=== PATIENT | male | born 1950 | race Caucasian/White ===

== ENCOUNTER 2020-12-28 18:01 | Emergency (ER) | payer OTHER ==
[2020-12-28 18:08] VITALS: BP 135/85
[2020-12-28] MEDS ORDERED: LIDOCAINE 1% 2 ML VIAL SUBQ STA (18:13)
--- NOTE | 2020-12-28 18:42 | ED Physician Documentation ---
History of Present Illness - Stated complaint Stated Complaint: FALL, HEAD LAC - Chief complaint Chief Complaint: Laceration - History obtained from History obtained from: Patient - Additonal information Additional information: This is a 70 yo M w/ a pmh of [facility] causing him to have some difficulty walking. He is visiting from [place] and was walking up porch stairs when he didn't clear one of the steps and stumbled forward. He hit his mouth and left eyebrow on the porch. He did not lose consciousness. He presents now w/ left eyebrow laceration and a swollen upper lip. No other injuries. He denies headache, confusion, dizziness, vision changes, or new focal weakness. He reports tetanus shot is up to date. He is not on any anticoagulants or antiplatlets. Normally goes to [facility] in [place], is returning home on Wednesday. Review of Systems Constitutional: reports: Reviewed and negative Eyes: reports: Reviewed and negative Ears: reports: Reviewed and negative Cardiac: reports: Reviewed and negative Respiratory: reports: Reviewed and negative GI: reports: Reviewed and negative Skin: reports: Laceration (s) (left eyebrow) Neurologic: reports: Reviewed and negative (pt w/ chronic weakness 2/2 to [facility].) PD PAST MEDICAL HISTORY - Past Medical History Past Medical History: Yes Musculoskeletal: Other (inclusion body myositis) - Present Medications Home Medications: Ambulatory Orders Medication Instructions Recorded Confirmed Ibuprofen [Motrin] 1 tablet PO BID PRN 12/28/20 12/28/20 allopurinoL [Zyloprim] 100 mg PO DAILY 12/28/20 12/28/20 atenoloL [Tenormin] 25 mg PO HS 12/28/20 12/28/20 metFORMIN [Glucophage] 500 mg PO BIDWM 12/28/20 12/28/20 - Allergies Allergies/Adverse Reactions: Allergies Allergy/AdvReac Type Severity Reaction Status Date / Time No Known Drug Allergies Allergy Verified 12/28/20 18:04 PD ED PE NORMAL - Vitals Vital signs reviewed: Yes - General General: Alert and oriented X 3, No acute distress, Well developed/nourished - HEENT HEENT: Other (left eyebrow laceration with localized swelling and contusion. swelling of the upper lip, no obvious lacerations. ) - Neck Neck: Supple, no meningeal sign, No bony TTP - Cardiac Cardiac: RRR, No murmur - Respiratory Respiratory: No respiratory distress, Clear bilaterally - Derm Derm: Normal color, Warm and dry, Other (3cm x 1cm laceration through the subq tissue just above and including the left eyebrow. ) - Neuro Neuro: Alert and oriented X 3 Eye Opening: Spontaneous Motor: Obeys Commands Verbal: Oriented GCS Score: 15 - Psych Psych: Normal mood, Normal affect Results - Vitals Vitals: Vital Signs - 24 hr 12/28/20 18:05 Temperature 36.2 C L Heart Rate 62 Respiratory 18 Rate Blood Pressure 135/85 H O2 Saturation 97 Oxygen O2 Source Room air Procedures - Laceration (location) Other left Length in cm: 3.5 Wound type: Linear, Into subcut fat, Clean Anesthesia: Lidocaine 1% Wound preparation: Irrigated copiously NS Deep layer closure: Vicryl, size #-0 - enter number (4.0), # sutures - enter number (2) Skin layer closure: Nylon, Size #-0 - enter number (4.0), Sutures - enter # (6) Other: Patient tolerated well, No complications, Dressing applied, Tetanus UTD PD MEDICAL DECISION MAKING - ED course Complexity details: re-evaluated patient, d/w patient ED course: 70 yo M presented after a trip and fall and sustained a left eyebrow laceration and upper lip contusion. Informed verbal consent obtained for eyebrow laceration repair. The wound was anesthetized w/ 5ml of 1% plain lidocaine and closed as per above with good approximation of the wound edges. He has a normal neuro exam, no cspine tenderness, and is not on any anticoagulation and declined head CT. He reports he is up to date on td vaccine. He will return to [place] in a few days and will have sutures removed there. Home wound care and return precautions reviewed w pt. Departure - Departure Disposition: 01 Home, Self Care Clinical Impression: Laceration, Laceration of left eyebrow Condition: Good Instructions: ED Laceration All Comments: Please have sutures removed in about 5 days. Use cool compress to help w/ swelling. You can shower and wash your face as you normally would but do not soak the wound or go swimming until the wound is healed. Return to an ER if there are signs of infection such as redness, purulent drainage, increased pain. If you develop a severe headache, dizziness, confusion, or change in mental status, I would recommend you return for a head CT.
== END 2020-12-28 18:49 | disposition home or self-care (01) ==
LOC: ED 18:01
DX: S01.112A Laceration without foreign body of left eyelid and periocular area, initial encounter (principal); W10.9XXA Fall (on) (from) unspecified stairs and steps, initial encounter; Y93.89 Activity, other specified; Y92.008 Other place in unspecified non-institutional (private) residence as the place of occurrence of the external cause
CPT/HCPCS: 12052